=== PATIENT | female | born 1955 | race Native Hawaiian/Other Pacific Islander ===

== ENCOUNTER 2016-07-21 08:01 | Outpatient (CLI) | payer BC | END 2016-07-21 19:02 | disposition home or self-care (01) | LOC: CT 08:01 | DX: J84.89 Other specified interstitial pulmonary diseases (principal); R91.8 Other nonspecific abnormal finding of lung field; J47.9 Bronchiectasis, uncomplicated ==

== ENCOUNTER 2016-10-03 16:03 | Outpatient (CLI) | payer BC | END 2016-10-03 19:35 | disposition home or self-care (01) | LOC: RAD 16:03 | DX: J98.4 Other disorders of lung (principal) ==

== ENCOUNTER 2017-01-24 12:53 | Outpatient (CLI) | payer BC | END 2017-01-24 19:37 | disposition home or self-care (01) | LOC: RAD 12:53 | DX: Z01.818 Encounter for other preprocedural examination (principal) ==

== ENCOUNTER 2017-12-19 08:33 | Outpatient (CLI) | payer BC | END 2017-12-19 20:55 | disposition home or self-care (01) | LOC: MRI 08:33 | DX: G57.62 Lesion of plantar nerve, left lower limb (principal); M19.079 Primary osteoarthritis, unspecified ankle and foot | CPT/HCPCS: 36415; 82565; 84520; A9576 ==

== ENCOUNTER 2018-01-29 08:04 | Outpatient (CLI) | payer BC | END 2018-01-29 21:19 | disposition home or self-care (01) | LOC: MRI 08:04 | DX: C44.92 Squamous cell carcinoma of skin, unspecified (principal) | CPT/HCPCS: A9576 ==

== ENCOUNTER 2019-01-27 10:43 | Outpatient (CLI) | payer BC | END 2019-01-27 20:52 | disposition home or self-care (01) | LOC: RAD 10:43 | DX: R06.09 Other forms of dyspnea (principal) ==

== ENCOUNTER 2021-05-24 10:24 | Observation (INO) | payer OTHER ==
[~2021-05-24] VITALS: Ht 162.6 cm; Wt 72.3 kg
[2021-05-24 11:43] VITALS: BP 114/67; TEMP 98.8; Ht 162.6 cm; Wt 72.3 kg
[2021-05-24 12:36] LABS: PLATELET COUNT 460 K/uL (152-353)
[2021-05-24] MEDS ORDERED: OMEPRAZOLE DR20 MG PO (12:39)
[2021-05-24] MEDS ORDERED: LIPITOR10 MG PO (12:40)
[2021-05-24] MEDS ORDERED: PREGABALIN150 MG PO (12:40)
[2021-05-24] MEDS ORDERED: AZATHIOPRINE50 MG PO (12:41)
[2021-05-24] MEDS ORDERED: PREDNISONE5 MG PO (12:42)
[2021-05-24] MEDS ORDERED: KP FOLIC ACID1 MG PO (12:42)
[2021-05-24] MEDS ORDERED: BENZONATATE100 MG PO (12:44)
[2021-05-24] MEDS ORDERED: OXYB5TAB64 PO (12:45)
[2021-05-24] MEDS ORDERED: METHENAMINE HIPP1 GM PO (12:46)
[2021-05-24] MEDS ORDERED: MONTELUKAST SOD10 MG PO (12:47)
[2021-05-24] MEDS ORDERED: HYDROCHLOROT12.5 M1 PO (12:48)
[2021-05-24] MEDS ORDERED: LISI10TA11 PO (12:48)
[2021-05-24] MEDS ORDERED: MUCINEX600 MG PO (12:50)
[2021-05-24] MEDS ORDERED: MAGNESIUM250 M1 PO (12:51)
[2021-05-24] MEDS ORDERED: ASPIR-LOW81 MG PO (12:52)
[2021-05-24] MEDS ORDERED: ASCORBIC ACD500 MG PO (12:53)
[2021-05-24] MEDS ORDERED: VITAMIN B-122500 MCG PO (12:56)
[2021-05-24] MEDS ORDERED: OYSTER SHELL PO (12:58)
[2021-05-24] MEDS ORDERED: DIFLUCAN50 MG PO ×2 (13:03→13:42)
[2021-05-24] MEDS ORDERED: ZINC220 M1 PO (13:41)
[2021-05-24 20:00] VITALS: BP 126/45; TEMP 99.3
[2021-05-25] VITALS: BP 122/52; TEMP 98.1
[2021-05-25 04:00] VITALS: BP 130/57; TEMP 98.4
[2021-05-25 08:00] VITALS: BP 116/58; TEMP 98.4
[2021-05-25 12:00] VITALS: BP 145/76; TEMP 98.1
== END 2021-05-25 14:55 | disposition home or self-care (01) ==
LOC: MED/SURG 10:24
PROVIDERS: ADMIT Internal Medicine; ATTEND Internal Medicine
DX: R55 Syncope and collapse (principal); I10 Essential (primary) hypertension; K21.9 Gastro-esophageal reflux disease without esophagitis; N32.81 Overactive bladder; E78.49 Other hyperlipidemia; J84.89 Other specified interstitial pulmonary diseases; M15.8 Other polyosteoarthritis; G62.9 Polyneuropathy, unspecified
CPT/HCPCS: 80053; 81000; 84443; 85027; 87635; 94760; 96360; 96361; 96372; 99220; A9576; G0378; G0379; J1650; U0003

== ENCOUNTER 2022-01-25 09:46 | Outpatient (CLI) | payer OTHER ==
[~2022-01-25 09:46] MED LIST: ASCORBIC ACD500 MG PO; ASPIR-LOW81 MG PO; AZATHIOPRINE50 MG PO; BENZONATATE100 MG PO; DIFLUCAN50 MG PO; HYDROCHLOROT12.5 M1 PO; KP FOLIC ACID1 MG PO; LIPITOR10 MG PO; LISI10TA11 PO; MAGNESIUM250 M1 PO; METHENAMINE HIPP1 GM PO; MONTELUKAST SOD10 MG PO; MUCINEX600 MG PO; OMEPRAZOLE DR20 MG PO; OXYB5TAB64 PO; OYSTER SHELL PO; PREDNISONE5 MG PO; PREGABALIN150 MG PO; VITAMIN B-122500 MCG PO; ZINC220 M1 PO
== END 2022-01-25 19:36 | disposition home or self-care (01) ==
LOC: CT 09:46
PROVIDERS: ATTEND Internal Medicine Pulmonary Disease
DX: J84.89 Other specified interstitial pulmonary diseases (principal); M06.9 Rheumatoid arthritis, unspecified; K21.9 Gastro-esophageal reflux disease without esophagitis; R05.3 Chronic cough; J30.2 Other seasonal allergic rhinitis

== ENCOUNTER 2022-08-18 09:30 | Outpatient (CLI) | payer OTHER | END 2022-08-18 20:50 | disposition home or self-care (01) | LOC: MRI 09:30 | PROVIDERS: ATTEND Psychiatry & Neurology Neurology | DX: I67.841 Reversible cerebrovascular vasoconstriction syndrome (principal) ==

== ENCOUNTER 2022-08-21 09:26 | Outpatient (CLI) | payer OTHER | END 2022-08-21 19:20 | disposition home or self-care (01) | LOC: MRI 09:26 | PROVIDERS: ATTEND Psychiatry & Neurology Neurology | DX: I67.841 Reversible cerebrovascular vasoconstriction syndrome (principal) ==